=== PATIENT | female | born 1960 | race Hispanic/Latino ===

== ENCOUNTER 2016-11-12 09:13 | Inpatient (IN) | payer BC, OTHER ==
[2016-11-12 09:19] VITALS: BMI 23.8
[2016-11-12] MEDS ORDERED: Albuterol-Ipratrop 3 mg / 0.5 (3 ml) UD IH STA ×4 (09:31→14:40)
--- NOTE | 2016-11-12 09:36 | ED PDOC ---
Arrival/HPI - General Chief Complaint: Rib Injury Time Seen by Provider: 11/12/16 09:25 Historian: Patient - History of Present Illness Narrative History of Present Illness (Text): 11/12/16 09:33 55-year-old female with a history of smoking presents today with cough and shortness of breath worsening over the past week. Patient states she was seen at an urgent care and was given Zithromax which she has completed without improvement in her symptoms. She is complaining of pain to the back and right ribs. She is complaining of tightness in the chest and shortness of breath and dyspnea on exertion. Patient states she has a history of asthma in the past. Patient states she smokes a pack of cigarettes in 3 days. Denies any recent travel. Patient states the cough is dry and then eventually she is able to cough up some phlegm. Denies fevers or chills. No medications taken for pain. No other complaints Time/Duration: 1 week Symptom Course: Worsening Quality: Stabbing Severity Level: 5 Past Medical History - Provider Review Nursing Documentation Reviewed: Yes - Travel History Have you recently traveled outside [place] w/in the past 3 mons?: No - Infectious Disease Hx of Infectious Diseases: None - Tetanus Immunization Tetanus Immunization: Unknown - Reproductive Menopause: Yes - Past Medical History Past Medical History: No Previous - Psychiatric Hx Depression: No Hx Emotional Abuse: No Hx Physical Abuse: No Hx Substance Use: No - Past Surgical History Past Surgical History: No Previous - Suicidal Assessment Feels Threatened In Home Enviroment: No Family/Social History - Physician Review Nursing Documentation Reviewed: Yes Family/Social History: Unknown Family HX Smoking Status: Heavy Smoker > 10 Cigarettes Daily Hx Alcohol Use: No Hx Substance Use: No Hx Substance Use Treatment: No Allergies/Home Meds Allergies/Adverse Reactions: Allergies No Known Allergies Allergy (Verified 11/12/16 09:19) Home Medications: Home Meds Medication Instructions Recorded Confirmed No Known Home Med 11/12/16 11/12/16 Review of Systems - Review of Systems Constitutional: Fatigue. absent: Fevers Respiratory: SOB, Cough Cardiovascular: absent: Chest Pain Gastrointestinal: absent: Abdominal Pain, Nausea, Vomiting Genitourinary Female: absent: Dysuria Musculoskeletal: Back Pain. absent: Arthralgias Skin: absent: Rash, Pruritis Neurological: absent: Headache, Dizziness Psychiatric: absent: Anxiety, Depression Physical Exam Vital Signs Reviewed: Yes Vital Signs Temp Pulse Resp BP Pulse Ox 11/12/16 16:27 65 18 138/65 97 11/12/16 13:11 67 18 141/68 95 11/12/16 11:51 64 18 145/71 100 11/12/16 10:58 65 18 148/75 100 11/12/16 09:16 18 98 11/12/16 09:14 97.7 F 67 18 150/78 100 Temperature: Afebrile Blood Pressure: Normal Pulse: Regular Respiratory Rate: Normal Appearance: Positive for: Well-Appearing, Non-Toxic, Comfortable Pain Distress: None Mental Status: Positive for: Alert and Oriented X 3 - Systems Exam Head: Present: Atraumatic Mouth: Present: Moist Mucous Membranes. No: Drooling, Trismus Pharnyx: Present: Normal. No: ERYTHEMA, EXUDATE, TONSILS ENLARGED, Peritonsilar Swelling, Uvular Deviation, Muffled/Hoarse Voice Nose (Internal): Present: Normal Inspection Neck: Present: Normal Range of Motion Respiratory/Chest: Present: Good Air Exchange, Wheezes, Rhonchi. No: Clear to Auscultation, Respiratory Distress, Accessory Muscle Use, Tachypneic Cardiovascular: Present: Regular Rate and Rhythm Abdomen: No: Tenderness Skin: Present: Warm, Dry, Normal Color. No: Rashes Psychiatric: Present: Alert Medical Decision Making ED Course and Treatment: 11/12/16 09:35 55yr old female with cough and sob and upper back pain and right sided rib pain x 1 week. completed zithromax. diffuse wheezing and rhonchi noted bilaterally. duoneb given solu medrol 125mg po cbc: wnl cmp: wnl trop; wnl bnp; wnl cxr; ? rll infiltrate. ekg; NSR at 67b/m no st elevations, normal axis. normal intervals. 11/12/16 11:11 pt reassessment; still with diffuse wheezing and rhonchi bilaterally; motrin added. duoneb x 2 added. pt is a smoker with 1 week of worsening cough/sob despite completion of zithromax; currently with diffuse wheezing bilaterally despite 3 duonebs; will admit observational status for asthma/copd exacerbation/? pneumonia. blood cultures pending; levaquin started IV. case discussed with dr. sanchez in depth; accepts admission with pulm consult. impression; asthma/copd exacerbation, cough, sob r/o pneumonia admit tele dr. sanchez. Reassessment Condition: Re-examined, Unchanged - Lab Interpretations Lab Results: 11/12/16 09:55 11/12/16 09:55 Lab Results 11/12/16 09:55: WBC 7.7, RBC 4.66, Hgb 14.5, Hct 42.1, MCV 90.3, MCH 31.1, MCHC 34.4, RDW 13.3, Plt Count 335, MPV 9.3, Gran % 58.1, Lymph % (Auto) 32.5, [place] % (Auto) 7.9 H, Eos % (Auto) 1.0 L, Baso % (Auto) 0.5, Gran # 4.48, Lymph # 2.5 , [place] # 0.6, Eos # 0.1, Baso # 0.04 11/12/16 09:55: Sodium 139, Potassium 4.0, Chloride 101, Carbon Dioxide 28, Anion Gap 14, BUN 19, Creatinine 0.7, Est GFR ( Amer) > 60, Est GFR (Non- Af Amer) > 60, Random Glucose 91, Calcium 9.9, Total Bilirubin 1.0, AST 24, ALT 30, Alkaline Phosphatase 63, Lactate Dehydrogenase 523, Total Creatine Kinase 281 H, CK-MB (CK-2) 2.5, CK-MB (CK-2) % Cancelled, Troponin I < 0.01, NT-Pro-B Natriuret Pep 155, Total Protein 7.9, Albumin 4.6, Globulin 3.3, Albumin/ Globulin Ratio 1.4 - RAD Interpretation Radiology Orders: 11/12/16 09:31 CHEST TWO VIEWS (PA/LAT) [RAD] Stat - Medication Orders Current Medication Orders: Sodium Chloride (Sodium Chloride 0.9%) 1,000 mls @ 100 mls/hr IV .Q10H ESTUARDO Last Admin: 11/12/16 14:46 Dose: 100 mls/hr Discontinued Medications Albuterol/Ipratropium (Duoneb 3 Mg/0.5 Mg (3 Ml) Ud) 3 ml IH STAT STA Stop: 11/12/16 09:32 Last Admin: 11/12/16 09:39 Dose: 3 ml Albuterol/Ipratropium (Duoneb 3 Mg/0.5 Mg (3 Ml) Ud) 3 ml IH STAT STA Stop: 11/12/16 10:56 Last Admin: 11/12/16 10:59 Dose: 3 ml Albuterol/Ipratropium (Duoneb 3 Mg/0.5 Mg (3 Ml) Ud) 3 ml IH STAT STA Stop: 11/12/16 10:56 Last Admin: 11/12/16 10:59 Dose: 3 ml Albuterol/Ipratropium (Duoneb 3 Mg/0.5 Mg (3 Ml) Ud) 3 ml IH STAT STA Stop: 11/12/16 14:41 Last Admin: 11/12/16 14:46 Dose: 3 ml Levofloxacin/Dextrose (Levaquin 750mg) 750 mg in 150 mls @ 100 mls/hr IVPB STAT STA Stop: 11/12/16 14:25 Last Admin: 11/12/16 13:26 Dose: 100 mls/hr Ibuprofen (Motrin Tab) 600 mg PO STAT STA Stop: 11/12/16 11:11 Last Admin: 11/12/16 11:59 Dose: 600 mg Methylprednisolone (Solu-Medrol) 125 mg IVP STAT STA Stop: 11/12/16 09:37 Last Admin: 11/12/16 09:55 Dose: 125 mg Disposition/Present on Arrival - Present on Arrival Any Indicators Present on Arrival: No History of DVT/PE: No History of Uncontrolled Diabetes: No Urinary Catheter: No History of Decub. Ulcer: No History Surgical Site Infection Following: None - Disposition Have Diagnosis and Disposition been Completed?: Yes Diagnosis: Shortness of breath, Asthma Disposition: HOSPITALIZED Disposition Time: 11:20 Patient Plan: Admission Patient Problems: Current Active Problems Problem Status Onset Asthma Acute Shortness of breath Acute Condition: FAIR
[2016-11-12 09:56] LABS: ADD MANUAL DIFF? NO
[2016-11-12 10:02] LABS: BASO # 0.04 K/mm3 (0.0-2.0); BASO % 0.5 % (0.0-3.0); EOS # 0.1 (0.0-0.7); GRAN # 4.48 (1.4-6.5); GRAN % 58.1 % (50.0-68.0); HEMATOCRIT 42.1 % (36.0-48.0); LYMPH # 2.5 (1.2-3.4); LYMPH % 32.5 % (22.0-35.0); MEAN CELL VOLUME 90.3 fL (80.0-105.0); MEAN CORPUSCULAR HEMOGLOBIN 31.1 pg (25.0-35.0); MEAN CORPUSCULAR HGB CONC 34.4 g/dl (31.0-37.0); MEAN PLATELET VOLUME 9.3 fl (7.0-11.0); MONO # 0.6 (0.1-0.6); MONO % 7.9 % (1.0-6.0); PLATELET COUNT 335 10^3/uL (120.0-450.0); RED CELL DISTRIBUTION WIDTH 13.3 % (11.5-14.5); WHITE BLOOD COUNT 7.7 10^3/ul (4.5-11.0)
[2016-11-12 10:11] LABS: ALB/GLOB RATIO 1.4 (1.1-1.8); ALKALINE PHOSPHATASE 63 U/L (38-133); ALT/SGPT 30 U/L (7-56); AST/SGOT 24 U/L (15-39); BLOOD UREA NITROGEN 19 mg/dL (7-21); CALCIUM 9.9 mg/dL (8.4-10.5); CARBON DIOXIDE 28 mmol/L (21-33); GFR AFRICAN-AMERICAN > 60; GLUCOSE,RANDOM 91 mg/dL (70-110); SODIUM 139 mmol/L (132-148); TOTAL PROTEIN 7.9 g/dL (5.8-8.3)
[2016-11-12 10:19] LABS: CHLORIDE 101 mmol/L (98-107)
[2016-11-12 10:34] LABS: TROPONIN I < 0.01 ng/mL
--- NOTE | 2016-11-12 11:09 | RAD ---
HISTORY: cough/sob COMPARISON: 07/12/2013 TECHNIQUE: Chest PA and lateral FINDINGS: LUNGS: No active pulmonary disease. PLEURA: No significant pleural effusion identified. No pneumothorax apparent. CARDIOVASCULAR: Normal. OSSEOUS STRUCTURES: No significant abnormalities. VISUALIZED UPPER ABDOMEN: Normal. OTHER FINDINGS: None. IMPRESSION: No active disease.
[2016-11-12] MEDS ORDERED: levoFLOXacin 750 mg in D5W 750 MG/150 ML BAG IVPB STA (12:56)
--- NOTE | 2016-11-12 13:53 | CARD ---
APPROVED REPORT EKG Measurement Heart [id number] <Conclusion> Normal sinus rhythm Normal ECG
[2016-11-12] MEDS: Sodium Chloride 0.9% 1,000 ML IV SCH (14:46)
[2016-11-12] MEDS ORDERED: Albuterol-Ipratrop 3 mg / 0.5 (3 ml) UD IH SCH (18:00)
--- NOTE | 2016-11-12 19:05 | HP ---
CHIEF COMPLAINT: Shortness of breath, coughing. HISTORY OF PRESENT ILLNESS: The patient is a 55-year-old lady with a history of smoking, came into t Emergency Room of [facility] with coughing, shortness of breath, worsening over the past wee k. The patient states she was seen at the urgent care center and was given Zithromax and which she c ompleted without improvement in her symptoms. She is complaining about pain to the back, her chest a nd right rib. She is complaining of tightening in the chest and shortness of breath, and dyspnea on e xertion. The patient states she has history of asthma in the past, but right now does not have asthm a for a couple of years. It was stable. The patient smokes a pack of cigarettes every day. Denies any recent travel. The patient states the cough is dry and then eventually she is able to cough up s ome phlegm. No fever, no chills. PAST MEDICAL HISTORY: History of asthma. FAMILY HISTORY: Father and mother noncontributory. HABITS: History of heavy smoking more ____ cigarettes per day. No alcohol, no substance abuse, no d rugs. ALLERGIES: The patient is not allergic to any medications. HOME MEDICATIONS: Zithromax. REVIEW OF SYSTEMS: The patient was seen and examined in the Emergency Room. Still coughing and havi ng shortness of breath, her chest pain and back pain. No abdominal pain. No nausea, vomiting, or di arrhea. No dysuria. No rash. No ____. No headache, no dizziness, no anxiety, depression. PHYSICAL EXAMINATION: VITAL SIGNS: Temperature 97.7, pulse 67, respiratory rate 18, blood pressure 150/78, pulse oximetry 100. HEENT: Head normocephalic, atraumatic. Eyes: PERRLA. Extraocular movements intact. Conjunctivae a re clear. Nose patent. Mucous membranes moist. NECK: Supple. No carotid bruit, JVD or thyromegaly. CHEST: Bilaterally symmetrical. HEART: S1, S2 positive. LUNGS: Positive wheezing bilaterally. ABDOMEN: Soft. Bowel sounds present. No organomegaly. EXTREMITIES: No edema, no cyanosis. NEUROLOGIC: The patient is awake, alert, moving all 4 extremities. No focal deficit. LABORATORY DATA: White blood cells 7.7, hemoglobin 14.5, hematocrit 42.1, platelets 335. Sodium ___ _, potassium 4.0. BUN 19, creatinine 0.7, glucose 91. ASSESSMENT AND PLAN: The patient is a 55-year-old lady who came with asthma, bronchitis, chest pain, shortness of breath, exacerbation of asthma. We admitted the patient, giving Solu-Medrol and antibi otics, DuoNeb. Pulmonary consult called. Gastrointestinal and deep venous thrombosis prophylaxis. Repeat labs. We will follow up. Katheryn Amezquita MD cc: [id number] TT: 11/12/2016 19:05:07 luiz
[2016-11-12] MEDS: Albuterol-Ipratrop 3 mg / 0.5 (3 ml) UD IH SCH (19:31)
--- NOTE | 2016-11-12 19:38 | CON ---
DATE: 11/12/2016 REFERRING PHYSICIAN: Dr. Amezquita. REASON FOR CONSULT: Cough, shortness of breath. HISTORY OF PRESENT ILLNESS: This is a 55-year-old female without any significant past medical histor y, used to be a 3 pack smoker a day and now smokes about half pack a day. From the last few days, vanegas s a cough, sore throat and shortness of breath with PMD, was given Zithromax without much relief and finally comes in with cough, shortness of breath. Had a fever at point of 102. No nausea, no vomiti ng, no diarrhea. No leg pain or leg swelling. PAST MEDICAL HISTORY: Significant for she is a smoker, may have COPD. SOCIAL HISTORY: Smoker. Denies any alcohol use. FAMILY HISTORY: No significant cardiopulmonary disease reported. ALLERGIES: None known. MEDICATIONS: She is on IV fluid normal saline 100 mL per hour. In ER, received Levaquin 750 m g daily, also received Motrin, Solu-Medrol 125 mg given and DuoNeb q. 6 hours. REVIEW OF SYSTEMS: No headache. Has some rhinitis, sore throat, cough and shortness of breath. No chest pain, no nausea, no vomiting, no diarrhea. No leg pain or leg swelling. PHYSICAL EXAMINATION: GENERAL: Sitting up side of the bed, receiving nebulizer treatment, has a cough and shortness of mohini ath. VITAL SIGNS: Temp is 98, heart rate 67, respiratory rate is 22, blood pressure 138/65, pulse ox 97% on room air. HEENT: Moist mucous membrane. No ulcer or oral thrush noted. NECK: Supple. No JVD. LUNGS: Has a prolonged expiratory phase with wheezing. HEART: S1, S2. ABDOMEN: Soft, nontender. No organomegaly. EXTREMITIES: There is no edema. NEUROLOGIC: Awake, alert, follows simple commands. LABORATORY DATA: Shows hemoglobin 14.5, hematocrit 42.1, WBC 7.7, platelet is . Sodium 139, po tassium 4.0, chloride 101, bicarbonate 28, BUN 19, creatinine 0.7, glucose 91, calcium 9.9, AST 24, A LT 30, alkaline phosphatase is 63. ProBNP is 155. Albumin is 4.6. Chest x-ray done in the ER shows no infiltrate or effusion. IMPRESSION AND PLAN: Exacerbation of chronic obstructive lung disease, active smoker, may be COPD tr iggered by URI symptoms. I agree with Dr. Amezquita with the present management. She is already given Levaquin and Solu-Medrol. We will continue both of them. Add inhaled bronchodilator. Gastric proph ylaxis. DVT prophylaxis. The patient is urged to stop smoking. We will give Nicoderm patch 14 mg d aily. Outpatient, she needs a pulmonary function test to assess lung function. We will also suggest doing a CAT scan of the chest to make sure there is no pneumonia and infiltrate. Thank you and will follow with you. Malena Maki MD cc: [id number] TT: 11/12/2016 19:37:46 Confirmation # [id number] Dictation # [id number] mn
[2016-11-12] MEDS: MethylPREDNISolone 40 mg Vial IVP SCH (21:47)
[2016-11-13] MEDS: Albuterol-Ipratrop 3 mg / 0.5 (3 ml) UD IH SCH ×4 (02:20→19:50)
[2016-11-13] MEDS: MethylPREDNISolone 40 mg Vial IVP SCH ×3 (05:27→21:48)
[2016-11-13] MEDS: Sodium Chloride 0.9% 1,000 ML IV SCH ×2 (05:28→14:22)
[2016-11-13] MEDS ORDERED: Enoxaparin 30 mg Syringe SC SCH (10:00)
[2016-11-13] MEDS: levoFLOXacin 500 MG TAB PO SCH (10:36)
--- NOTE | 2016-11-13 21:15 | PN ---
DATE: 11/13/2016 REFERRING PHYSICIAN: Dr. Amezquita. SUBJECTIVE: She is sitting up in a bed, feels much better. Family is at bedside. Cough is improved . No fever, sore throat is improved. No nausea, no vomiting or diarrhea. No leg pain or leg swelli ng. OBJECTIVE: GENERAL: No acute distress. VITAL SIGNS: Temp is 98, heart rate is 83, respiratory rate is 20, blood pressure 110/69, pulse ox 9 8% on room air. HEENT: Moist mucous membrane. Crowded airway. NECK: Supple, no JVD. LUNGS: Have a prolonged expiratory phase. Wheezing is much improved. HEART: S1, S2. ABDOMEN: Soft, nontender. No organomegaly. EXTREMITIES: There is no edema. NEUROLOGIC: Awake, alert, follows simple command. MEDICATIONS: She is on DuoNeb q. 6 hours, Levaquin 500 mg daily, Pepcid 40 mg at bedtime, Solu-Medro l 20 mg q. 8 hours, Tylenol p.r.n., Ultram 50 mg q.i.d. p.r.n. LABORATORY DATA: Reviewed. Hemoglobin 14.5, hematocrit 42.1, WBC 7.7. MICROBIOLOGY: Blood culture has been negative. IMPRESSION AND PLAN: Exacerbation of chronic obstructive lung disease, active smoker which probably triggered his COPD. I spoke to the patient in detail about COPD relation to cigarette smoking and risk of cigarette smoking. She assured understanding and wants to stop smoking. Continue Solu-M edrol, antibiotics, and inhaled bronchodilator. Gastric prophylaxis. DVT prophylaxis. Outpatient P FT. CT scan of the chest is pending. Thank you and will follow with you. Malena Maki MD cc: [id number] TT: 11/13/2016 21:14:42 Confirmation # [id number] Dictation # [id number] mn
[2016-11-14] MEDS: Albuterol-Ipratrop 3 mg / 0.5 (3 ml) UD IH SCH ×5 (02:08→19:32)
[2016-11-14] MEDS: MethylPREDNISolone 40 mg Vial IVP SCH ×3 (05:25→21:43)
[2016-11-14 07:07] LABS: HEMATOCRIT 38.8 % (36.0-48.0); MEAN CELL VOLUME 90.4 fL (80.0-105.0); MEAN CORPUSCULAR HEMOGLOBIN 30.5 pg (25.0-35.0); MEAN CORPUSCULAR HGB CONC 33.8 g/dl (31.0-37.0); MEAN PLATELET VOLUME 9.5 fl (7.0-11.0); RED CELL DISTRIBUTION WIDTH 14.3 % (11.5-14.5); WHITE BLOOD COUNT 20.6 10^3/ul (4.5-11.0)
[2016-11-14 07:19] LABS: BLOOD UREA NITROGEN 17 mg/dL (7-21); CALCIUM 9.6 mg/dL (8.4-10.5); CARBON DIOXIDE 24 mmol/L (21-33); CHLORIDE 104 mmol/L (98-107); CHOLESTEROL 204 mg/dL (130-200); GFR AFRICAN-AMERICAN > 60; GLUCOSE,RANDOM 117 mg/dL (70-110); SODIUM 138 mmol/L (132-148)
--- NOTE | 2016-11-14 07:51 | PN ---
DATE: 11/13/2016 SUBJECTIVE: The patient seen and examined on the bedside. Looks comfortable. No nausea, vomiting, or diarrhea. No hematuria or hematochezia. No swelling of the legs. No chest pain, no headache, no dizziness, but according to her with cough she is feeling back pain, like spraining and straining her muscles. No fever, no chills. No hematuria or hematochezia. PHYSICAL EXAMINATION: VITAL SIGNS: Temperature is 98, pulse rate 83, blood pressure 110/96, respiratory rate 20. HEENT: Head is normocephalic, atraumatic. Eyes: PERRLA. Extraocular muscles intact. Conjunctivae are clear. Nose patent. Mucous membranes moist. NECK: Supple. No carotid bruit. No JVD or thyromegaly. CHEST: Bilaterally symmetrical. HEART: S1, S2 positive. LUNGS: Clear to auscultation. ABDOMEN: Soft. Bowel sounds are present. No organomegaly. EXTREMITIES: No edema, no cyanosis. NEUROLOGIC: The patient is awake, alert, moving all 4 extremities. No focal deficit. MEDICATIONS: DuoNeb, Levaquin, Pepcid, NS, Solu-Medrol, Tylenol. LABORATORY DATA: White blood cells 7.7, hemoglobin 14.5, hematocrit 42.1, platelets 335. Sodium 139, potassium 4.0, BUN 19, creatinine 0.7, 251. ASSESSMENT AND PLAN: The patient is a 55-year-old lady with history of heavy smoking, chronic obstructive pulmonary disease, came with exacerbation of chronic obstructive pulmonary disease. Before hospitalization, the patient had history of upper respiratory tract infection, got antibiotics from urgent care, but cough was getting chronic. The patient finished Levaquin as outpatient. Getting now Solu-Medrol in the hospital. Dr. Maki added inhaled bronchodilators. Gastric and DVT prophylaxis. Because of muscular pain , I started her on tramadol. Getting Nicoderm patch. Needs PFT; can do as outpatient. Will look at scan of the chest. Tapering doses of Solu-Medrol. Repeat labs. GI and DVT prophylaxis. Will follow up. Katheryn Amezquita MD cc: [id number] TT: 11/14/2016 07:51:01 Confirmation # [id number] Dictation # [id number] mn ARIAS
--- NOTE | 2016-11-14 08:51 | CT ---
PROCEDURE: CT Chest without contrast HISTORY: r/o pneu. COMPARISON: None. TECHNIQUE: Contiguous axial images were obtained through the chest without intravenous contrast enhancement. Sagittal and coronal reconstructions were performed. Radiation dose (DLP): 275 mGy-cm. This CT exam was performed using one or more of the following dose reduction techniques: Automated exposure control, adjustment of the mA and/or kV according to patient size, and/or use of iterative reconstruction technique. FINDINGS: LUNGS: Left upper lobe ground-glass density infiltrates are noted. There is discoid atelectasis with areas of more broad-based consolidation in the lung bases, right greater than left. MEDIASTINUM: Unremarkable thoracic aorta. No aneurysm. Normal sized heart. Main pulmonary artery unremarkable. No vascular congestion. No lymphadenopathy. PLEURA: No pleural fluid. No pneumothorax. BONES: No fracture. No destructive lesion. UPPER ABDOMEN: Grossly unremarkable. OTHER FINDINGS: None. IMPRESSION: Left upper lobe ground-glass density infiltrates are noted. There is discoid atelectasis with areas of more broad-based consolidation in the lung bases, right greater than left.
[2016-11-14] MEDS: levoFLOXacin 500 MG TAB PO SCH (10:19)
--- NOTE | 2016-11-14 17:53 | PN ---
DATE: 11/14/2016 REFERRING PHYSICIAN: Dr. Amezquita. SUBJECTIVE: The patient is ambulating in the room, feels much better, decreased cough, decreased jozef rtness of breath. No nausea, no vomiting, diarrhea. No leg pain or leg swelling. OBJECTIVE: GENERAL: No acute distress. VITAL SIGNS: Temperature is 98, heart rate is 83, respiratory rate is 18, blood pressure 119/76, pul se ox 94% on room air. HEENT: Moist mucous membrane. Crowded airway. Mallampati score is 4. NECK: Supple. No JVD. LUNGS: Has a prolonged expiratory phase. No more wheezing. HEART: S1, S2. ABDOMEN: Soft, nontender. No organomegaly. EXTREMITIES: There is no edema. NEUROLOGIC: Awake, alert, follows simple commands. MEDICATIONS: She is on DuoNeb q. 6 hours, Levaquin 500 mg daily, Pepcid 40 mg daily, Solu-Medrol 30 mg q. 8 hours, Tylenol on a p.r.n. basis, Ultram 50 mg q.i.d. p.r.n. LABORATORY DATA: Shows hemoglobin 13.1, hematocrit 38.8, WBC 21,000, platelet is 392. Sodium 138, p otassium 4.0, chloride 104, bicarbonate 24, BUN 17, creatinine 0.7, glucose 117, calcium is 9.6. Cho lesterol is 204. TSH 0.57. Microbiology: Blood cultures have been negative. He has a CAT scan of the chest done yesterday, which shows a left upper lobe ground glass densities infiltrate noted. The re is discoid atelectasis with an area of some more broad base consolidation in the lung base, right greater than the left. IMPRESSION AND PLAN: Exacerbation of chronic obstructive lung disease, may have pneumonia or pneumon itis. Active smoker. Will decrease Solu-Medrol to 20 q. 12 hours. Continue antibiotics. Continue inhaled bronchodilator. Asked patient to stop smoking. Gastric prophylaxis, deep venous thrombosis prophylaxis. Discharge planning tomorrow. We will need followup CT in 3 months to assure the stabil ity of pneumonitis. Thank you and will follow with you. Malena Maki MD cc: [id number] TT: 11/14/2016 17:52:31 Confirmation # [id number] Dictation # [id number] jn
--- NOTE | 2016-11-14 20:57 | PN ---
DATE: 11/14/2016 SUBJECTIVE: The patient was seen and examined on the bedside, looks comfortable , having lunch. Coughing is better. Shortness of breath is better. Chest pain is getting better. No swelling of the leg. No fever, no chills. PHYSICAL EXAMINATION: VITAL SIGNS: Temperature 98, heart rate 83, respiratory rate 18, blood pressure 120/70, pulse oximetry 94% on room air. HEAD: Normocephalic, atraumatic. Eyes: PERRLA. Extraocular muscles intact. Conjunctivae clear. Nose patent. NECK: Supple. No carotid bruit. No JVD or thyromegaly. CHEST: Bilaterally symmetrical. HEART: S1, S2 positive. LUNGS: Had prolonged expiratory phase and no more wheezing. HEART: S1, S2 positive. ABDOMEN: Soft, nontender. No organomegaly. EXTREMITIES: No edema, no cyanosis. NEUROLOGIC: The patient is awake, alert, follows simple commands. MEDICATIONS: DuoNeb, Levaquin, Pepcid, Solu-Medrol, Tylenol, Ultram. LABORATORY DATA: Hemoglobin 13.1, hematocrit 38.8, white blood cells 21,000, platelets 392. Sodium 138, potassium 4.0, BUN 17, creatinine 0.7, glucose 117. Blood cultures have been negative. Had CAT scan of the chest yesterday, shows left lower lobe densities, there is discoid atelectasis with an area of some more broad based consolidation at the lung base, now right greater than the left. ASSESSMENT AND PLAN: The patient is a 55-year-old lady with exacerbation of chronic obstructive lung disease, bronchitis, rule out pneumonia, had pneumonitis, active smoker. Dr. Maki decreased the Solu-Medrol to 20. Continue antibiotics. Continue inhaled bronchodilators. Urge the patient quit smoking. Gastric prophylaxis, deep venous thrombosis prophylaxis. Need followup of CT scan in 3 months to assure the stability of pneumonitis. Gastrointestinal prophylaxis. Repeat labs. We will follow up. Katheryn Amezquita MD cc: [id number] TT: 11/14/2016 20:57:11 Confirmation # [id number] Dictation # [id number] [id number] BIANCHI
[2016-11-15 06:12] LABS: HEMATOCRIT 37.6 % (36.0-48.0); MEAN CELL VOLUME 90.2 fL (80.0-105.0); MEAN CORPUSCULAR HEMOGLOBIN 30.2 pg (25.0-35.0); MEAN CORPUSCULAR HGB CONC 33.5 g/dl (31.0-37.0); MEAN PLATELET VOLUME 9.2 fl (7.0-11.0); RED CELL DISTRIBUTION WIDTH 14.1 % (11.5-14.5); WHITE BLOOD COUNT 13.8 10^3/ul (4.5-11.0)
[2016-11-15 06:16] VITALS: O2SAT 93
[2016-11-15] MEDS: Albuterol-Ipratrop 3 mg / 0.5 (3 ml) UD IH SCH (07:49)
[2016-11-15] MEDS: levoFLOXacin 500 MG TAB PO SCH (10:18)
[2016-11-15] MEDS: MethylPREDNISolone 40 mg Vial IVP SCH (10:18)
[2016-11-15 12:38] VITALS: BP 123/81; PULSE 68; RESP 20; TEMP 98.7
--- NOTE | 2016-11-15 22:43 | CP.PCM.PN ---
Subjective - Date & Time of Evaluation Date of Evaluation: 11/15/16 Time of Evaluation: 10:00 - Subjective Subjective: feels better, decrease SOB, no cough, no fever, no nausea, no vomiting, no leg pain Objective - Vital Signs/Intake and Output Vital Signs (last 24 hours): Temp Pulse Resp BP Pulse Ox 98.7 F 68 20 123/81 93 L 11/15/16 12:00 11/15/16 12:00 11/15/16 12:00 11/15/16 12:00 11/15/16 06:00 - Labs Labs: 11/15/16 06:05 11/14/16 05:10 - Constitutional Appears: Well - Head Exam Head Exam: ATRAUMATIC, NORMAL INSPECTION, NORMOCEPHALIC - Eye Exam Eye Exam: EOMI, Normal appearance, PERRL Pupil Exam: NORMAL ACCOMODATION, PERRL - ENT Exam ENT Exam: Mucous Membranes Moist, Normal Exam - Neck Exam Neck Exam: Full ROM, Normal Inspection. absent: Lymphadenopathy - Respiratory Exam Respiratory Exam: Clear to Ausculation Bilateral, NORMAL BREATHING PATTERN - Cardiovascular Exam Cardiovascular Exam: REGULAR RHYTHM, +S1, +S2. absent: Murmur - GI/Abdominal Exam GI & Abdominal Exam: Soft, Normal Bowel Sounds. absent: Tenderness - Rectal Exam Rectal Exam: NORMAL INSPECTION - Extremities Exam Extremities Exam: Full ROM, Normal Capillary Refill, Normal Inspection. absent : Joint Swelling, Pedal Edema - Back Exam Back Exam: NORMAL INSPECTION - Neurological Exam Neurological Exam: Alert, Awake, CN II-XII Intact, Normal Gait, Oriented x3 - Psychiatric Exam Psychiatric exam: Normal Affect, Normal Mood Assessment and Plan (1) COPD (chronic obstructive pulmonary disease) with acute bronchitis Status: Acute - Assessment and Plan (Free Text) Plan: may go home on taper po steroids, inhale bronch dilators, earge to stope smoking , PFT as out patient
== END 2016-11-15 15:08 | disposition home or self-care (01) | DRG 191 ==
LOC: ED 09:13 → ERH 13:04 → 2RNO 18:04
PROVIDERS: ADMIT Internal Medicine; ATTEND Internal Medicine
DX: J44.1 Chronic obstructive pulmonary disease with (acute) exacerbation (principal); J45.901 Unspecified asthma with (acute) exacerbation; J20.9 Acute bronchitis, unspecified; J44.0 Chronic obstructive pulmonary disease with (acute) lower respiratory infection; F17.210 Nicotine dependence, cigarettes, uncomplicated